=== PATIENT | female | born 1995 | race Caucasian/White ===

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

== ENCOUNTER 2017-08-06 09:14 | Emergency (ER) | payer BC ==
[~2017-08-06] VITALS: Ht 170.2 cm; Wt 73.2 kg
[~2017-08-06 09:14] MED LIST: BCPILLS PO
[2017-08-06 09:20] VITALS: TEMP 36.7; Ht 170.2 cm; Wt 73.2 kg
--- NOTE | 2017-08-06 09:42 | EMERGENCY ROOM VISIT NOTE ---
History Report prepared by Thuy: Shannon Grijalva Under the Supervision of: Dr. Sterling Reza M.D. First contact with patient: 09:35 Chief Complaint: OTHER COMPLAINT Stated Complaint: LARGE MASS RT BREAST History of Present Illness The patient is a 22 year old white female who presents to the ED with a cc of a large mass on her right breast beginning 5 days mine captain. Negative tenderness, drainage, increase in size, nausea, vomiting, or family history of breast cancer. She denies any use of alcohol, drugs, or tobacco products. Source of History: patient Onset: 5 days mine captain Position: other (right breast) Quality: other (mass on breast) Associated Symptoms: No nausea, No vomiting Note: Negative tenderness, drainage, increases in size, or family history of breast cancer Review of Systems See HPI for pertinent positives and negatives. A total of ten systems were reviewed and were otherwise negative. Past Medical & Surgical Surgical Problems: (1) Hx of tonsillectomy Family History Cancer FH: kidney disease FHx: diabetes mellitus FHx: gallbladder disease Heart disease High blood pressure Lung disease No pertinent family history Social History Smoking Status: Never Smoker Smokeless Tobacco Use: No Alcohol Use: none Drug Use: none Occupation Status: [employer] student Current/Historical Medications Scheduled Control Pills ( Control Pills), 1 TAB PO DAILY Allergies Coded Allergies: No Known Allergies (Unverified , 08/06/17) Physical Exam Vital Signs Date Time Temp Pulse Resp B/P (MAP) Pulse Ox O2 Delivery O2 Flow Rate FiO2 08/06/17 11:21 86 16 119/74 99 08/06/17 09:20 36.7 92 16 125/79 100 Room Air Physical Exam GENERAL: Awake, alert, well-appearing, NAD. Wearing glasses. HENT: Normocephalic, atraumatic. EYES: Normal conjunctiva. Sclera non-icteric. NECK: Supple. No nuchal rigidity. FROM. RESPIRATORY: CTAB, no rhonchi, wheezing, crackles CARDIAC: RRR, no MRG Chest: 4 x 3 cm hard mobile mass, no overlying erythema, no fluctuance, no drainage. Nontender. Opposite breast without any notable masses. No masses palpated in the bilateral axillae ABDOMEN: Soft, NTND, BS+ MSK: No chest wall TTP, no LE edema NEURO: GCS 15, CN 2-12 intact, moves all 4s on command SKIN: No rash or jaundice noted. Medical Decision & Procedures ER Provider Diagnostic Interpretation: Radiology results as stated below per my review and radiologist interpretation: CHEST ONE VIEW PORTABLE CLINICAL HISTORY: R breast mass breast mass COMPARISON STUDY: No previous studies for comparison. FINDINGS: The bones soft tissues and hemidiaphragms are normal. The cardiomediastinal silhouette is normal. The lungs are clear. The pulmonary vasculature is normal. IMPRESSION: Negative chest. The above report was generated using voice recognition software. It may contain grammatical, syntax or spelling errors. Electronically signed by: Earl Steinberg M.D. 08/06/2017 10:06 AM Study: Right breast ultrasound HISTORY:: Lump FINDINGS: Moderate fibrocystic tissue by survey ultrasound. No well-defined mass or collection mild central criteria. IMPRESSION: 1. Negative ultrasound right breast. 2. Given the history of clinically palpable nodule, diagnostic mammography possibly with correlating repeat breast ultrasound at the same time is suggested. Electronically signed by: Earl Steinberg M.D. 08/06/2017 10:35 AM ED Course 0949: The patient was evaluated in room B11. A complete history and physical exam was performed. 1105: I reevaluated the patient. Discussed results and discharge instructions: She verbalized understanding and agreement. The patient is ready for discharge. Medical Decision The patient is a 22 year old white female who presents to the ED with a cc of a large mass on her right breast beginning 5 days mine captain. Negative tenderness, drainage, increase in size, nausea, vomiting, or family history of breast cancer. Nursing notes reviewed. Ancillary studies and prior records reviewed. Differential diagnosis: Etiologies such as cellulitis, abscess, MRSA infection, DVT, necrotizing fasciitis, dermatitis, drug eruption, as well as others were entertained. Patient was seen and evaluated the bedside. Patient has no past medical problems and no family history of breast CA. Patient noted a breast mass approximately 5 days prior. Patient was brought in for further evaluation and treatment. The patient does have a firm nontender mass over the right lateral breast. Patient has no history of recent weight loss and a family history of breast cancer per the mother at the bedside. There is no overlying erythema, calor, or fluctuance. There is no active drainage. Patient denies any pain. Patient did have a chest x-ray as well as a chest ultrasound. Patient's chest x -ray is unremarkable and the ultrasound does not show any evidence of cystic or fluid collection. The patient did have recommended follow-up with the breast center. I discussed with the rn case manager hospice who helped arrange a follow-up appointment. Patient was deemed suitable for outpatient follow-up and treatment at this time. Patient was given strict follow-up, discharge, and return precautions. All questions were answered. Patient was deemed suitable for outpatient follow-up at this time. Patient agreed with the plan of care and was safely discharged home. Medication Reconcilliation Current Medication List: was personally reviewed by me Blood Pressure Screening Patient's blood pressure: Normal blood pressure Blood pressure disposition: Did not require urgent referral Impression Primary Impression: Breast mass in female Scribe Attestation The scribe's documentation has been prepared under my direction and personally reviewed by me in its entirety. I confirm that the note above accurately reflects all work, treatment, procedures, and medical decision making performed by me. Departure Information Dispostion Home / Self-Care Referrals [facility] (PCP) Patient Instructions ED Breast Mass Uncertain Cause, My [facility] Additional Instructions Please return to the emergency department if you have worsening or recurrent symptoms not amenable to at-home treatment. Please call for a follow-up appointment with her primary care physician. Please take your medications as prescribed. If you have other concerns and/or complaints please feel free to also call your primary care physician's office or return the ED for further evaluation, management, and treatment. Please follow-up with the breast center as described by the rn case manager hospice. He may return if you have any worsening symptoms, redness, drainage, or pain not amenable to at home medications. You may take 800 mg Ibuprofen every 6 hours as needed for pain/fever with food unless told by your physician not to take NSAIDs. You may take tylenol 1000 mg every 6 hours as needed for pain/fever unless told by your physician to not take it or have liver problems. You may take motrin and tylenol separately or at the same time. You have been examined and treated today on an emergency basis only. This is not a substitute for, or an effort to provide, complete comprehensive medical care. It is impossible to recognize and treat all injuries or illnesses in a single emergency department visit. It is therefore important that you follow up closely with [facility], your PCP, and/or your specialist(s). Call as soon as possible for an appointment. Thank you for your time and consideration. I look forward to speaking with you again soon. Please don't hesitate to call us if you have any questions.
--- NOTE | 2017-08-06 10:08 | DIAGNOSTIC IMAGING REPORT ---
CHEST ONE VIEW PORTABLE CLINICAL HISTORY: R breast mass breast mass COMPARISON STUDY: No previous studies for comparison. FINDINGS: The bones soft tissues and hemidiaphragms are normal. The cardiomediastinal silhouette is normal. The lungs are clear. The pulmonary vasculature is normal. IMPRESSION: Negative chest. The above report was generated using voice recognition software. It may contain grammatical, syntax or spelling errors. Electronically signed by: Earl Steinberg M.D. 08/06/2017 10:06 AM Dictated Date/Time: 08/06/2017 10:06 AM
--- NOTE | 2017-08-06 10:37 | DIAGNOSTIC IMAGING REPORT ---
Study: Right breast ultrasound HISTORY:: Lump FINDINGS: Moderate fibrocystic tissue by survey ultrasound. No well-defined mass or collection mild central criteria. IMPRESSION: 1. Negative ultrasound right breast. 2. Given the history of clinically palpable nodule, diagnostic mammography possibly with correlating repeat breast ultrasound at the same time is suggested. Electronically signed by: Earl Steinberg M.D. 08/06/2017 10:35 AM Dictated Date/Time: 08/06/2017 10:34 AM
[2017-08-06 11:21] VITALS: BP 119/74; PULSE 86; O2SAT 99
== END 2017-08-06 11:22 | disposition home or self-care (01) ==
LOC: C.EDB 09:16
DX: N63.10 Unspecified lump in the right breast, unspecified quadrant (principal); Z79.3 Long term (current) use of hormonal contraceptives